=== PATIENT | female | born 1970 | race Caucasian/White ===

== ENCOUNTER 2016-10-27 19:28 | Emergency (ER) | payer MEDICAID ==
[~2016-10-27] VITALS: Ht 170.2 cm; Wt 63.5 kg
[2016-10-27 19:39] VITALS: BP 128/83
[2016-10-27] MEDS ORDERED: SODIUM CHLORIDE FLUSH 10ML SYR IVF ONE (20:00)
[2016-10-27 20:24] LABS: BLOOD UREA NITROGEN 15 mg/dL (7-18)
== END 2016-10-27 21:43 | disposition home or self-care (01) ==
LOC: ED 21:25
DX: H70.11 Chronic mastoiditis, right ear (principal)
CPT/HCPCS: 36415; 80048; 82040; 85025; 85651; 99284

== ENCOUNTER → 2016-10-27 | Outpatient (CLI) | payer MEDICAID ==
[~2016-10-27] MED LIST: ACET1TAB64 PO; AMOX1TAB64 PO; ASPI-515 PO; FLUT9.9S NAS; METH4TAB2 PO; NEOM10SO7 EACH EAR; PSEU30TA PO
== END | disposition home or self-care (01) ==
LOC: CFH 15:45
DX: H70.91 Unspecified mastoiditis, right ear (principal); Z98.890 Other specified postprocedural states
CPT/HCPCS: 70480

== ENCOUNTER 2017-12-27 05:42 | Inpatient (IN) | payer MEDICAID ==
[2017-12-24 09:44] LABS: MICROSCOPIC NOT IND
[2017-12-24 09:48] LABS: BASOPHILS # (AUTO) 0.03 x10^3/uL (0-0.1); BASOPHILS % (AUTO) 1 % (0-1); EOSINOPHILS # (AUTO) 0.06 x10^3/uL (0-0.4); EOSINOPHILS % (AUTO) 1 % (1-7); LYMPHOCYTES # (AUTO) 1.57 x10^3/uL (1-3.4); LYMPHOCYTES % (AUTO) 29 % (22-44); MD NO; MEAN CORPUSCULAR HGB CONC 34.9 g/dL (32.4-35.8); MEAN CORPUSCULAR VOLUME 97.5 fL (80-100); MEAN PLATELET VOLUME 7.6 fL (7.4-10.4); MONOCYTES # (AUTO) 0.44 x10^3/uL (0.2-0.8); MONOCYTES % (AUTO) 8 % (2-9); NEUTROPHILS # (AUTO) 3.41 x10^3/uL (1.8-6.8); NEUTROPHILS % (AUTO) 62 % (42-75); PLATELET COUNT 243 x10^3/uL (130-400); RED BLOOD COUNT 4.31 x10^6/uL (3.82-5.3); RED CELL DISTRIBUTION WIDTH 12.4 % (9.6-15.2)
[2017-12-24 09:51] LABS: INTERNATIONAL NORMALIZED RATIO 1.03 (0.93-1.1); PROTHROMBIN TIME 10.6 Seconds (9.6-11.5)
[2017-12-24 09:51] LABS: CULTURE INDICATED? NO
[2017-12-24 09:56] LABS: ANION GAP 4 mmol/L (5-15); CHLORIDE 106 mmol/L (98-107)
[~2017-12-27] VITALS: Ht 170.2 cm; Wt 64.5 kg
[~2017-12-27 05:42] MED LIST changes: -PSEU30TA PO; +PSEU30TA27 PO; +VALCYCLOVIR PO
[2017-12-27] MEDS ORDERED: LACTATED RINGERS 1,000 ML IV SCH (06:02)
[2017-12-27] MEDS ORDERED: BACITRACIN 50,000 UNIT ONE (06:06)
[2017-12-27] MEDS ORDERED: BUPIVACAINE/PF-EPI 0.5% 1:200K ONE (06:06)
[2017-12-27] MEDS ORDERED: THROMBIN 5,000 UNIT VIAL TP ONE (06:06)
[2017-12-27 06:30] LABS: HCG UR SG 1.022 (1.003-1.030)
[2017-12-27] MEDS ORDERED: SCOPOLAMINE PATCH, 1.5MG PATCH.TD72 TD ONE ×2 (06:48→07:00)
[2017-12-27] MEDS ORDERED: FENTANYL PF 100 MCG/2ML ONE ×2 (06:52→07:18)
[2017-12-27] MEDS ORDERED: GABAPENTIN 300 MG CAPSULE PO ONE (07:00)
[2017-12-27] MEDS ORDERED: OXYcodone IR 5MG TABLET PO ONE (07:00)
[2017-12-27] MEDS ORDERED: ACETAMINOPHEN 500 MG TABLET PO ONE (07:00)
[2017-12-27] MEDS ORDERED: CEFAZOLIN 1,000 MG ONE (07:02)
[2017-12-27] MEDS ORDERED: SUCCINYLCHOLINE 20 MG/ML, 10ML ONE (07:02)
[2017-12-27] MEDS ORDERED: ONDANSETRON 2MG/ML, 2ML ONE (07:02)
[2017-12-27] MEDS ORDERED: PROPOFOL 10 MG/ML, 50ML ONE (07:02)
[2017-12-27] MEDS ORDERED: ROCURONIUM 10 MG/ML,10ML ONE (07:02)
[2017-12-27] MEDS ORDERED: DEXAMETHASONE 4 MG/ML, 1ML ONE (07:02)
[2017-12-27] MEDS ORDERED: PROPOFOL 10 MG/ML, 20ML ONE (07:02)
[2017-12-27] MEDS ORDERED: LABETALOL 5MG/ML, 20ML IV PRN (08:30)
[2017-12-27] MEDS ORDERED: PROMETHAZINE 25 MG/ML, 1ML IV PRN (08:30)
[2017-12-27] MEDS ORDERED: OXYcodone 5 MG/5 ML ORAL.SOL UDC PO PRN (08:30)
[2017-12-27] MEDS ORDERED: MEPERIDINE/PF 25MG/0.5ML IVPush PRN (08:30)
[2017-12-27] MEDS ORDERED: HALOPERIDOL 5 MG/ML IV PRN (08:30)
[2017-12-27] MEDS ORDERED: PROCHLORPERAZINE 5 MG/ML, 2ML IV PRN (08:30)
[2017-12-27] MEDS ORDERED: DIPHENHYDRAMINE 50 MG/ML, 1ML IVPush PRN ×2 (08:30→09:00)
[2017-12-27] MEDS ORDERED: FENTANYL PF 100 MCG/2ML IV PRN (08:30)
[2017-12-27] MEDS ORDERED: hydrALAzine 20 MG/ML, 1ML IV PRN (08:30)
[2017-12-27] MEDS ORDERED: PROMETHAZINE 25 MG/ML, 1ML IM PRN (09:00)
[2017-12-27] MEDS ORDERED: CEFAZOLIN PMX 1GM/50ML 50 ML IVPB SCH ×2 (09:00→11:00)
[2017-12-27] MEDS ORDERED: PHARMACY MAY ADJ FOR RENAL FX MC PRN (09:00)
[2017-12-27] MEDS: VALACYCLOVIR 500MG TABLET PO SCH (09:00)
[2017-12-27] MEDS ORDERED: HYDROcodone/APAP 5/325 TABLET PO PRN (09:00)
[2017-12-27] MEDS: SODIUM CHLORIDE FLUSH 10ML SYR IVF SCH ×2 (09:00→20:29)
[2017-12-27] MEDS ORDERED: METHOCARBAMOL 750 MG TABLET PO PRN (09:00)
[2017-12-27] MEDS ORDERED: BISACODYL 10 MG SUPP PR PRN (09:00)
[2017-12-27] MEDS ORDERED: OXYcodone/APAP 5/325MG TABLET PO PRN (09:00)
[2017-12-27] MEDS ORDERED: SENNA/DOCUSATE TABLET PO PRN (09:00)
[2017-12-27] MEDS ORDERED: MORPHINE SULFATE 4 MG/ML, 1ML IVPush PRN (09:00)
[2017-12-27] MEDS ORDERED: ONDANSETRON 2MG/ML, 2ML IVPush PRN (09:00)
[2017-12-27] MEDS ORDERED: HYDROmorphone 2 MG/ML, 1ML ONE (09:04)
[2017-12-27] MEDS ORDERED: METHOCARBAMOL 750 MG TABLET ONE (09:04)
[2017-12-27] MEDS ORDERED: OXYcodone 5 MG/5 ML ORAL.SOL UDC ONE (09:05)
[2017-12-27] MEDS: HYDROmorphone 1 MG/ML, 1ML IV PRN ×4 (09:10→09:36)
[2017-12-27] MEDS ORDERED: LORazepam 2 MG/ML, 1ML ONE (09:38)
[2017-12-27] MEDS: LORazepam 2 MG/ML, 1ML IVPush PRN ×2 (09:42→09:57)
[2017-12-27] MEDS: D5%-0.9% NACL+KCL 20MEQ 1,000 ML IV SCH (11:42)
[2017-12-27 13:08] VITALS: BP 128/77
[2017-12-27] MEDS: CEFAZOLIN PMX 1GM/50ML 50 ML IVPB SCH ×2 (15:07→23:22)
[2017-12-27] MEDS: HYDROcodone/APAP 10/325 MG TABLET PO PRN ×3 (18:56→23:41)
[2017-12-27 20:50] VITALS: BP 97/57
[2017-12-28] MEDS: D5%-0.9% NACL+KCL 20MEQ 1,000 ML IV SCH (02:03)
[2017-12-28 03:46] VITALS: BP 112/68
[2017-12-28 07:08] VITALS: BP 112/75
[2017-12-28] MEDS: HYDROcodone/APAP 10/325 MG TABLET PO PRN ×2 (07:48→12:09)
[2017-12-28] MEDS: SODIUM CHLORIDE FLUSH 10ML SYR IVF SCH (08:00)
[2017-12-28] MEDS: VALACYCLOVIR 500MG TABLET PO SCH (08:11)
[2017-12-28] MEDS ORDERED: CEPH-368 PO (08:54)
[2017-12-28] MEDS ORDERED: METH750T87 PO (08:54)
[2017-12-28] MEDS ORDERED: HYDR-3307 PO (08:54)
== END 2017-12-28 12:27 | disposition home or self-care (01) | DRG 472 ==
LOC: ORIP 05:42 → 4NOR 10:27 → DCLOUNGE 12-28 12:15
PROVIDERS: ADMIT Neurological Surgery; ATTEND Neurological Surgery
PROC: 0RB30ZZ Excision of Cervical Vertebral Disc, Open Approach (ICD-10-PCS; 2017-12-27)
PROC: 4A11X4G Monitoring of Peripheral Nervous Electrical Activity, Intraoperative, External Approach (ICD-10-PCS; 2017-12-27)
PROC: 0RG20A0 Fusion of 2 or more Cervical Vertebral Joints with Interbody Fusion Device, Anterior Approach, Anterior Column, Open Approach (ICD-10-PCS; principal; 2017-12-27 07:00)
DX: M48.02 Spinal stenosis, cervical region (principal); G99.2 Myelopathy in diseases classified elsewhere; M50.121 Cervical disc disorder at C4-C5 level with radiculopathy; M40.202 Unspecified kyphosis, cervical region; G43.909 Migraine, unspecified, not intractable, without status migrainosus; Z82.49 Family history of ischemic heart disease and other diseases of the circulatory system; Z82.3 Family history of stroke; Z83.3 Family history of diabetes mellitus
CPT/HCPCS: 36415; 71046; 72040; 80048; 81003; 81025; 85025; 85610; 85730; 93005; C1713; G0378; J0690; J1100; J1170; J2405; J2704; J3010; C1762; J0330; J2060; J3480; J7120